=== PATIENT | male | born 1945 | race Caucasian/White ===

== ENCOUNTER 2017-02-09 12:02 | Emergency (ER) | payer MEDICARE, OTHER ==
[2017-02-09 12:38] VITALS: RESP 20
[2017-02-09] MEDS ORDERED: KETOROLAC 60 MG/2 ML VIAL IM STA (12:50)
[2017-02-09] MEDS ORDERED: ORPHENADRINE 30 MG/ML 2 ML VIAL IM STA (12:50)
[2017-02-09] MEDS ORDERED: HYDROcodone/APAP 10-325MG 1 EACH TAB PO ONE (12:50)
--- NOTE | 2017-02-09 12:56 | ED ---
Back Pain HPI - General Chief Complaint: Back Pain/Injury Stated Complaint: Back Pain Time Seen by Provider: 02/09/17 12:41 Source: patient, RN notes reviewed, old records reviewed Limitations: no limitations - History of Present Illness Initial Comments: This is a 71-year-old male presenting to the emergency department with chief complaint of lower back pain. Patient reports that he recently moved here from [place] and is in the car for 5 days. Patient reports that after moving he was trying to listen heavy boxes and twisted and now has some lower back pain. Patient states that he has no numbness or tingling down the legs. Denies any saddle anesthesias or loss of bowel or bladder control. Patient reports that the pain is in the lower lumbar spine and will occasionally shoots up and down the leg and up the back. Patient reports that he be comfortable sitting in one position within with certain movements it's worse. Patient states that he is relatively healthy. Patient reports that he recently had a rhizotomy for relieving some chronic back pain and muscle spasms. Patient presented or meningismus much pain before. - Related Data Previous Rx's Medication Instructions Recorded Cyclobenzaprine [Flexeril] 10 mg PO TID #15 tab 02/09/17 HYDROcodone/APAP 10-325MG [Argillite 1 tab PO Q6H PRN #15 tab 02/09/17 10-325] Allergies Allergy/AdvReac Type Severity Reaction Status Date / Time No Known Allergies Allergy Verified 02/09/17 12:38 Review of Systems ROS Statement: Those systems with pertinent positive or pertinent negative responses have been documented in the HPI. ROS Other: All systems not noted in ROS Statement are negative. Past Medical History Past Medical History: Cancer, Pneumonia Additional Past Medical History / Comment(s): back , rt eye blindness History of Any Multi-Drug Resistant Organisms: MRSA Date of last positivie culture/infection: 2008 MDRO Source:: rt shoulder/lung Past Surgical History: Orthopedic Surgery, Prostate Surgery Additional Past Surgical History / Comment(s): knee replacement,rt shoulder,eye surgery Past Psychological History: No Psychological Hx Reported Smoking Status: Never smoker Past Alcohol Use History: None Reported Past Drug Use History: None Reported General Exam - General Exam Comments Initial Comments: Pleasant 71-year-old male. No acute distress. Limitations: no limitations General appearance: alert, in no apparent distress Head exam: Present: atraumatic, normocephalic, normal inspection Eye exam: Present: normal appearance, PERRL, EOMI. Absent: scleral icterus, conjunctival injection, periorbital swelling ENT exam: Present: normal exam, mucous membranes moist Neck exam: Present: normal inspection. Absent: tenderness, meningismus, lymphadenopathy Respiratory exam: Present: normal lung sounds bilaterally. Absent: respiratory distress, wheezes, rales, rhonchi, stridor Cardiovascular Exam: Present: regular rate, normal rhythm, normal heart sounds. Absent: systolic murmur, diastolic murmur, rubs, gallop, clicks GI/Abdominal exam: Present: soft, normal bowel sounds. Absent: distended, tenderness, guarding, rebound, rigid Extremities exam: Present: normal inspection, full ROM, normal capillary refill. Absent: tenderness, pedal edema, joint swelling, calf tenderness Back exam: Present: normal inspection, muscle spasm (Lumbar muscle spasm.), paraspinal tenderness (Right-sided lumbar paraspinal tenderness.). Absent: full ROM Neurological exam: Present: alert, oriented X3, CN II-XII intact Psychiatric exam: Present: normal affect, normal mood Skin exam: Present: warm, dry, intact, normal color. Absent: rash Course Vital Signs 02/09/17 12:35 Temperature 97.2 F L Pulse Rate 80 Respiratory 20 Rate Blood Pressure 145/86 O2 Sat by Pulse 96 Oximetry Medical Decision Making - Medical Decision Making 71-year-old male presents emergency room chief complaint of back pain and back spasms. Patient reports that he recently moved and lifted some boxes. Patient reports that it's became progressively worse. Patient reports the pain is worse with movement. Denies any difficulty with urinating or bowel movements. Patient reports that it's very difficult for him to move. Patient received lumbar spine x-ray. Negative for any acute fracture dislocation. Evidence of multilevel degenerative changes. Patient was given IM Toradol and Norflex. Patient is given 1 by mouth Argillite. Patient reports that he is still in a lot of pain. Patient only given 1 mg of Dilaudid and written for muscle relaxers and pain medication. Discussed close follow-up with a primary care physician. Discussed return parameters. Patient is history plan will comply. - Radiology Data Radiology results: report reviewed No acute fracture dislocation seen her lumbar spine. Reversal of normal lumbar lordosis moderate to advanced multilevel degenerative changes noted. Disposition Clinical Impression: Acute lumbar back pain Disposition: HOME SELF-CARE Condition: Good Instructions: Acute Low Back Pain (ED) Additional Instructions: Patient advised to rest, apply heat and ice to the back. Patient advised to take medications as directed. Follow-up with primary care physician as well as establish care. Return to the emergency department if there are any alarming signs or symptoms including loss of bowel or bladder control. Prescriptions: Cyclobenzaprine [Flexeril] 10 mg PO TID #15 tab HYDROcodone/APAP 10-325MG [Argillite 10-325] 1 tab PO Q6H PRN #15 tab PRN Reason: Pain Referrals: Lorena Rogers MD [STAFF PHYSICIAN] - 1-2 days Yandel Zhou MD [STAFF PHYSICIAN] - 1-2 days Lobo Woods MD [STAFF PHYSICIAN] - 1-2 days Time of Disposition: 14:15
--- NOTE | 2017-02-09 13:53 | XR ---
EXAMINATION TYPE: XR lumbar spine 2 or 3V DATE OF EXAM: 02/09/2017 CLINICAL HISTORY: Lifting injury today with low back pain TECHNIQUE: Frontal and lateral images of the lumbar spine are obtained. COMPARISON: None FINDINGS: There are 6 lumbar type vertebral bodies identified. The lumbar spine shows loss of snow l lumbar lordosis without evidence of acute fracture or dislocation. Vertebral body heights are withi n normal limits. There is moderate to severe multilevel disc space narrowing with multilevel vacuum d isc phenomenon and moderate multilevel anterior and lateral spurring. The overlying soft tissue appe ars unremarkable. IMPRESSION: No acute fracture or dislocation is seen in the lumbar spine. Reversal of normal lumbar lordosis with moderate to advanced multilevel degenerative changes noted.
[2017-02-09] MEDS ORDERED: HYDROmorphone 1 MG/ML 1 ML SYRINGE IM STA (14:19)
[2017-02-09 14:33] VITALS: BP 140/92; PULSE 73; TEMP 98.5
== END 2017-02-09 14:33 | disposition home or self-care (01) ==
LOC: EC 12:02
DX: M62.830 Muscle spasm of back (principal); M47.816 Spondylosis without myelopathy or radiculopathy, lumbar region; Z86.14 Personal history of Methicillin resistant Staphylococcus aureus infection; Z85.9 Personal history of malignant neoplasm, unspecified; Z79.899 Other long term (current) drug therapy; X50.0XXA Overexertion from strenuous movement or load, initial encounter; X50.1XXA Overexertion from prolonged static or awkward postures, initial encounter
CPT/HCPCS: 72100; 99284; 96372 ×3; J2360; J1885; J1170

== ENCOUNTER → 2017-07-19 | Outpatient (CLI) | payer MEDICARE, OTHER | END | disposition home or self-care (01) | LOC: LABWHC1 09:18 | PROVIDERS: ATTEND Urology | DX: C61 Malignant neoplasm of prostate (principal) | CPT/HCPCS: 36415; 84153 ==

== ENCOUNTER → 2017-11-14 | Outpatient (CLI) | payer MEDICARE, OTHER ==
[2017-11-14 12:39] LABS: Anion Gap 11 mmol/L; Blood Urea Nitrogen 19 mg/dL (9-20); Calcium 10.1 mg/dL (8.4-10.2); Carbon Dioxide 31 mmol/L (22-30); Chloride 101 mmol/L (98-107); Glucose 92 mg/dL (74-99); Potassium 4.8 mmol/L (3.5-5.1); Sodium 143 mmol/L (137-145)
[2017-11-14 13:11] LABS: Prostate Specific Antigen 0.71 ng/mL (0.00-4.00)
== END | disposition home or self-care (01) ==
LOC: LABWHC1 11:31
PROVIDERS: ATTEND Radiology Radiation Oncology
DX: C61 Malignant neoplasm of prostate (principal)
CPT/HCPCS: 36415; 80048; 84153

== ENCOUNTER → 2017-11-21 | Outpatient (CLI) | payer MEDICARE, OTHER ==
--- NOTE | 2017-11-21 11:51 | CT ---
EXAMINATION TYPE: CT pelvis w con DATE OF EXAM: 11/21/2017 COMPARISON: NONE HISTORY: 72-year-old male history of prostate cancer with prostatectomy. Increasing PSA levels TECHNIQUE: Contiguous axial scanning of the pelvis following administration of 100 ml Omnipaque 300 I V contrast. Delayed images through the bladder and coronal/sagittal reconstructions performed. CT DLP: 975.2 mGycm Automated exposure control for dose reduction was used. FINDINGS: The visualized kidneys, gallbladder, pancreas, and spleen show no gross abnormality. These organs are only partially imaged on this exam. No dilated small bowel, free fluid, or free air. No mesenteric or retroperitoneal lymphadenopathy in the lower abdomen. Normal appendix. Bladder incompletely distended. The patient is status post prostatectomy. No abnormal enhancement see n in the prostatectomy bed. No pelvic lymphadenopathy identified. Partially visualized small right-si ded hydrocele. Bones: Mild degenerative changes at the hips. A 9 mm sclerotic focus left iliac bone, axial image 44 suspected to represent a bone island. Same with a smaller sclerotic focus left iliac bone at the SI j oint, axial image 41. Degenerative changes throughout the lumbar spine. IMPRESSION: 1. STATUS POST PROSTATECTOMY. NO SUSPICIOUS ENHANCING MASS IDENTIFIED IN THE PROSTATECTOMY BED. 2. NO LOWER ABDOMINAL OR PELVIC LYMPHADENOPATHY SEEN. 3. A COUPLE SMALL SCLEROTIC FOCI IN THE LEFT ILIAC BONE SUSPECTED TO REPRESENT BONE ISLANDS. IF AVAIL ABLE, COMPARISON CAN BE MADE TO PATIENT'S PRIOR EXAMS TO DETERMINE STABILITY. ALSO, CORRELATE TO T HE DEGREE OF PSA ELEVATION.
--- NOTE | 2017-11-21 14:02 | NM ---
EXAMINATION TYPE: NM bone scan whole body DATE OF EXAM: 11/21/2017 COMPARISON: CT dated 11/21/2017 HISTORY: Prostate carcinoma Delayed whole-body scanning was performed following the injection of 23.4 mCi Tc 99m MDP. Images acq uired 3 hours post injection. FINDINGS: A small area of focal radiotracer uptake is seen within the proximal right tibial metadiaphysis and i ts medial aspect. Other symmetric uptake of the knees represent degenerative change with photopenic d efect on the left compatible with prior surgical intervention. No focal uptake is seen within the lef t iliac bone to correspond to the 9 mm nonspecific sclerotic focus, favored to represent a benign bon e island. Smaller pelvic sclerotic foci utilized on the prior CT are punctate and is likely not demon strate uptake due to small size. However these could also relate to bone islands. Symmetric uptake within the sacroiliac joints, shoulders, chromic clavicular joints, sternoclavicular joints, elbows, wrists, and ankles most commonly relates to arthropathy. IMPRESSION: 1. Small focal rounded area of uptake within the medial aspect of the proximal right tibial metadiaph ysis. Metastasis to this region is unlikely but possible and therefore correlation with dedicated rad iographs of the right tibia and fibula are recommended. 2. No other scintigraphic evidence of metastatic disease. The previously seen 9 mm left pelvic sclero tic focus on the CT dated 11/21/2017 does not demonstrate focal uptake. 3. Symmetric multifocal joint uptake in the appendicular skeleton most compatible with degenerative c hange.
== END | disposition home or self-care (01) ==
LOC: RADNMMAIN 09:14
PROVIDERS: ATTEND Radiology Radiation Oncology
DX: C61 Malignant neoplasm of prostate (principal); R93.7 Abnormal findings on diagnostic imaging of other parts of musculoskeletal system; Z90.79 Acquired absence of other genital organ(s)
CPT/HCPCS: 72193; 78306; A9503; Q9967

== ENCOUNTER → 2018-02-15 | Outpatient (CLI) | payer MEDICARE, OTHER ==
[2018-02-15 12:14] LABS: Blood Urea Nitrogen 19 mg/dL (9-20)
[2018-02-15 12:47] LABS: Prostate Specific Antigen 0.51 ng/mL (0.00-4.00)
== END | disposition home or self-care (01) ==
LOC: LABWHC1 08:56
PROVIDERS: ATTEND Physical Medicine & Rehabilitation
DX: C61 Malignant neoplasm of prostate (principal); G89.4 Chronic pain syndrome; M51.26 Other intervertebral disc displacement, lumbar region; M51.36 Other intervertebral disc degeneration, lumbar region; M47.816 Spondylosis without myelopathy or radiculopathy, lumbar region; M79.1 Myalgia; M25.512 Pain in left shoulder; M25.511 Pain in right shoulder; M25.551 Pain in right hip; M25.552 Pain in left hip
CPT/HCPCS: 36415; 82565; 84153; 84520

== ENCOUNTER → 2018-08-16 | Outpatient (CLI) | payer MEDICARE, OTHER | LOC: LABWHC1 12:14 | PROVIDERS: ATTEND Nurse Practitioner Adult Health | DX: C61 Malignant neoplasm of prostate (principal); Z92.3 Personal history of irradiation | CPT/HCPCS: 36415; 84153 ==

== ENCOUNTER → 2018-11-16 | Outpatient (CLI) | payer MEDICARE | END | disposition home or self-care (01) | LOC: LABWHC1 06:47 | PROVIDERS: ATTEND Radiology Radiation Oncology | DX: C61 Malignant neoplasm of prostate (principal); Z92.3 Personal history of irradiation | CPT/HCPCS: 36415; 84153 ==

== ENCOUNTER → 2019-03-26 | Outpatient (CLI) | payer MEDICARE | END | disposition home or self-care (01) | LOC: LABWHC1 10:06 | PROVIDERS: ATTEND Radiology Radiation Oncology | DX: C61 Malignant neoplasm of prostate (principal); Z92.3 Personal history of irradiation; R97.21 Rising PSA following treatment for malignant neoplasm of prostate | CPT/HCPCS: 36415; 84153 ==

== ENCOUNTER → 2020-06-16 | Outpatient (CLI) | payer MEDICARE ==
--- NOTE | 2020-06-16 12:08 | XR ---
EXAMINATION TYPE: XR chest 2V DATE OF EXAM: 06/16/2020 COMPARISON: NONE TECHNIQUE: PA and lateral views submitted. HISTORY: Cough FINDINGS: Elevated right hemidiaphragm with basilar consolidation and small effusion. Subsegmental changes at t he left lung base. Arthropathy of the shoulder. Postsurgical change right shoulder. No pneumothorax. Heart size normal. IMPRESSION: 1. Bilateral lower lobe infiltrate with small effusion on the right. Correlate for pneumonia otherwis e consider mild CHF.
== END | disposition home or self-care (01) ==
LOC: RADXRMAIN 11:33
PROVIDERS: ATTEND Nurse Practitioner Adult Health
DX: J90 Pleural effusion, not elsewhere classified (principal); R91.8 Other nonspecific abnormal finding of lung field
CPT/HCPCS: 71046

== ENCOUNTER → 2020-09-08 | Outpatient (CLI) | payer MEDICARE | END | disposition home or self-care (01) | LOC: LABWHC1 12:31 | PROVIDERS: ATTEND Nurse Practitioner Adult Health | DX: R05 Cough (principal); R06.02 Shortness of breath; R50.9 Fever, unspecified | CPT/HCPCS: U0003; C9803 ==

== ENCOUNTER → 2020-10-09 | Outpatient (CLI) | payer MEDICARE | END | disposition home or self-care (01) | LOC: LABWHC1 10:42 | PROVIDERS: ATTEND Radiology Radiation Oncology | DX: C61 Malignant neoplasm of prostate (principal); R97.21 Rising PSA following treatment for malignant neoplasm of prostate; Z92.3 Personal history of irradiation | CPT/HCPCS: 36415; 84153 ==

== ENCOUNTER → 2021-04-27 | Outpatient (CLI) | payer MEDICARE | END | disposition home or self-care (01) | LOC: LABWHC1 11:17 | PROVIDERS: ATTEND Radiology Radiation Oncology | DX: Z08 Encounter for follow-up examination after completed treatment for malignant neoplasm (principal); C61 Malignant neoplasm of prostate; Z85.828 Personal history of other malignant neoplasm of skin; Z85.46 Personal history of malignant neoplasm of prostate; Z92.3 Personal history of irradiation | CPT/HCPCS: 36415; 84153 ==

== ENCOUNTER → 2021-11-04 | Outpatient (CLI) | payer MEDICARE ==
[2021-11-04 18:59] LABS: Basophils # (A) 0.03 X 10*3/uL (0.00-0.10); Basophils % (A) 0.4 %; Eosinophils # (A) 0.41 X 10*3/uL (0.04-0.35); Eosinophils % (A) 5.9 %; HCT 37.9 % (39.6-50.0); HGB 11.5 g/dL (13.0-17.0); Immature Grans, Automated 0.6 %; Lymphocytes # (A) 1.31 X 10*3/uL (0.90-5.00); Lymphocytes % (A) 18.7 %; MCH 26.1 pg (27.0-32.0); MCHC 30.3 g/dL (32.0-37.0); MCV 86.1 fL (80.0-97.0); Mean Platelet Volume 9.8 fL (9.5-12.2); Monocytes # (A) 0.68 X 10*3/uL (0.20-1.00); Monocytes % (A) 9.7 %; NRBC Per 100 WBC 0 /100 WBCS (0.0-0.0); Neutrophils # (A) 4.52 X 10*3/uL (1.80-7.70); Neutrophils % (A) 64.7 %; Platelet Count 400 X 10*3/uL (140-440); RDW 17.3 % (11.5-14.5); WBC 6.99 X 10*3/uL (4.50-10.00)
[2021-11-04 19:32] LABS: ALT 17 U/L (10-49); AST 25 U/L (14-35); African American GFR (CKD) 100.6 (60.0-200.0); Albumin 4.1 g/dL (3.8-4.9); Albumin/Globulin Ratio 1.52 (1.60-3.17); Alkaline Phosphatase 81 U/L (41-126); BUN/Creat Ratio 22.25 Ratio (12.00-20.00); Blood Urea Nitrogen 17.8 mg/dL (9.0-27.0); Carbon Dioxide 24.6 mmol/L (20.0-27.5); Chloride 101 mmol/L (96-109); Chol/HDL Ratio 3.59 Ratio; Globulin 2.7 g/dL (1.6-3.3); Glucose 96 mg/dL (70-110); LDL Cholesterol,Calculated 85.2 mg/dL (0.0-131.0); Non-African American GFR(CKD) 86.8 (60.0-200.0); Potassium 4.7 mmol/L (3.5-5.5); Sodium 137 mmol/L (135-145); Total Protein 6.8 g/dL (6.2-8.2)
== END | disposition home or self-care (01) ==
LOC: LABWHC1 10:39
PROVIDERS: ATTEND Radiology Radiation Oncology
DX: Z08 Encounter for follow-up examination after completed treatment for malignant neoplasm (principal); Z85.828 Personal history of other malignant neoplasm of skin; Z85.46 Personal history of malignant neoplasm of prostate; Z92.3 Personal history of irradiation; C61 Malignant neoplasm of prostate; I50.9 Heart failure, unspecified; F33.0 Major depressive disorder, recurrent, mild; J44.9 Chronic obstructive pulmonary disease, unspecified; G63 Polyneuropathy in diseases classified elsewhere
CPT/HCPCS: 36415; 80053; 80061; 82306; 82607; 84153; 84439; 84443; 85025

== ENCOUNTER → 2022-01-27 | Outpatient (CLI) | payer MEDICARE ==
[2022-01-27 12:46] LABS: Anisocytosis Slight; Basophils % (A) 1 %; Eosinophils # (A) 0.4 k/uL (0-0.7); Eosinophils % (A) 7 %; HGB 11.2 gm/dL (13.0-17.5); Hypochromasia Marked; Lymphocytes # (A) 1.4 k/uL (1.0-4.8); Lymphocytes % (A) 24 %; MCH 25.8 pg (25.0-35.0); MCHC 30.3 g/dL (31.0-37.0); MCV 85.1 fL (80.0-100.0); Mean Platelet Volume 7.1; Monocytes # (A) 0.5 k/uL (0-1.0); Monocytes % (A) 8 %; Neutrophils # (A) 3.2 k/uL (1.3-7.7); Neutrophils % (A) 57 %; Platelet Count 426 k/uL (150-450); RBC 4.35 m/uL (4.30-5.90); Reticulocyte % 1.7 % (0.5-2.0); WBC 5.6 k/uL (3.8-10.6)
[2022-01-27 18:43] LABS: Protein, Total 6.3 g/dL (6.2-8.2)
[2022-01-27 19:12] LABS: % Iron Saturation 4.33 (15.00-50.00); African American GFR (CKD) 84.4 (60.0-200.0); Anion Gap 10.1 mmol/L (10.00-18.00); BUN/Creat Ratio 22.4 Ratio (12.00-20.00); Blood Urea Nitrogen 22.4 mg/dL (9.0-27.0); Calcium 9.5 mg/dL (8.7-10.3); Carbon Dioxide 26.9 mmol/L (20.0-27.5); Ferritin 16.3 ng/mL (22.0-322.0); Non-African American GFR(CKD) 72.8 (60.0-200.0); Prostate Specific Antigen 1.5 ng/mL (0.00-6.50)
== END | disposition home or self-care (01) ==
LOC: LABWHC1 10:37
PROVIDERS: ATTEND Radiology Radiation Oncology
DX: C61 Malignant neoplasm of prostate (principal); Z92.3 Personal history of irradiation; Z85.46 Personal history of malignant neoplasm of prostate; Z85.828 Personal history of other malignant neoplasm of skin; Z85.820 Personal history of malignant melanoma of skin; Z08 Encounter for follow-up examination after completed treatment for malignant neoplasm
CPT/HCPCS: 36415; 80048; 82607; 82728; 82746; 83540; 83550; 84153; 84165; 85025; 85045

== ENCOUNTER → 2022-01-27 | Outpatient (CLI) | payer MEDICARE | END | disposition home or self-care (01) | LOC: LABWHC1 10:51 | PROVIDERS: ATTEND Internal Medicine | DX: Z53.9 Procedure and treatment not carried out, unspecified reason (principal) ==

== ENCOUNTER → 2022-02-04 | Outpatient (CLI) | payer MEDICARE ==
--- NOTE | 2022-02-05 08:35 | CA ---
Transthoracic Echo Report Name: Ashkan Eden Age: 76 Gender: M : 1945 Exam Date: 02/04/2022 13:56 Exam Location: [facility] Ht (in): 71 Wt (lb): 224 Ordering Physician: Joseph Griggs MD Attending/Referring Phys: Joseph Griggs MD Front Line Leader Geno Najera RDCS Procedure CPT: Indications: chf Cardiac Hx: Technical Quality: Good Contrast 1: Total Dose (mL): Contrast 2: Total Dose (mL): MEASUREMENTS (Male / Female) Normal Values 2D ECHO LV Diastolic Diameter PLAX 4.5 cm 4.2 - 5.9 / 3.9 - 5.3 cm LV Systolic Diameter PLAX 2.2 cm IVS Diastolic Thickness 1.2 cm 0.6 - 1.0 / 0.6 - 0.9 cm LVPW Diastolic Thickness 1.2 cm 0.6 - 1.0 / 0.6 - 0.9 cm LV Relative Wall Thickness 0.5 RV Internal Dim ED PLAX 3.3 cm LA Volume 48.3 cm??? 18 - 58 / 22 - 52 cm??? M-MODE Aortic Root Diameter MM 3.7 cm LA Systolic Diameter MM 3.4 cm LA Ao Ratio MM 0.9 MV E Point Septal Separation 0.6 cm AV Cusp Separation MM 2.4 cm DOPPLER AV Peak Velocity 99.1 cm/s AV Peak Gradient 3.9 mmHg MV Area PHT 4.2 cm??? MR Peak Velocity 228.5 cm/s MR Peak Gradient 20.9 mmHg Mitral E Point Velocity 53.7 cm/s Mitral A Point Velocity 75.5 cm/s Mitral E to A Ratio 0.7 MV Deceleration Time 181.6 ms MV E' Velocity 6.4 cm/s Mitral E to MV E' Ratio 8.4 TR Peak Velocity 117.5 cm/s TR Peak Gradient 5.5 mmHg Right Ventricular Systolic Press 10.4 mmHg FINDINGS Left Ventricle Mildly increased septal wall thickness. Left ventricular ejection fraction is estimated at 55-60 %. Left ventricular cavity size normal. Right Ventricle The right ventricle is normal in size and function. Right Atrium The right atrium is normal in size. Left Atrium The left atrium is normal in size. Mitral Valve Structurally normal mitral valve without significant stenosis or prolapse. There is mild mitral regurgitation. Aortic Valve Structurally normal aortic valve without significant sclerosis or stenosis. There is no aortic regurgitation. Tricuspid Valve Structurally normal tricuspid valve without significant stenosis. Pulmonary artery systolic pressure is normal. Mild tricuspid regurgitation. Pulmonic Valve Structurally normal pulmonic valve without significant stenosis. There is no pulmonic regurgitation. Pericardium Normal pericardium without effusion. Aorta Normal aortic root dimension. CONCLUSIONS Normal left ventricular dimension and systolic function See above for further details Previewed by: Dr. Devan Owen MD (Electronically Signed) Final Date: 05 Feb 2022 08:34
== END | disposition home or self-care (01) ==
LOC: RADECHMAIN 18:45
PROVIDERS: ATTEND Internal Medicine
DX: I08.1 Rheumatic disorders of both mitral and tricuspid valves (principal)
CPT/HCPCS: 93306

== ENCOUNTER → 2022-04-09 | Outpatient (CLI) | payer MEDICARE ==
--- NOTE | 2022-04-12 06:41 | PE ---
EXAMINATION TYPE: PET CT fusion skull to thigh DATE OF EXAM: 04/09/2022 COMPARISON: CT abdomen and pelvis September 20, 2021 HISTORY: History of prostate cancer diagnosed 2010 treated with prostatectomy 2010 with radiation t reatment through 2018. PMSA doubled over last 3 months. TECHNIQUE: Following the intravenous administration of 6.01 mCi Ga-PSMA-11 PET, whole body images ar e performed from the skull base to the midthigh. Images are reviewed on the computer in the coronal, axial, and sagittal planes. Reconstructed rotating images are created on independent workstation an d reviewed on the computer. A localization and attenuation correction CT is performed in conjunctio n with the PET scan. SCAN: Subsequent Scan FINDINGS: SKULL BASE AND NECK: Normal symmetric uptake at level of parotid and submandibular glands. No suspic ious hypermetabolic uptake. CHEST, MEDIASTINUM, AND HILAR REGION: Low lung volumes and elevated right hemidiaphragm. No suspiciou s hypermetabolic uptake. ABDOMEN AND PELVIS: Normal excretion. Prostate gland surgically absent. There are 2 subcentimeter but prominent left pelvic lymph nodes measuring near 6 mm axial image 214 and more posteriorly 218, with abnormal hypermetabolic uptake max SUV is 10. OSSEOUS STRUCTURES: No definitive abnormal hypermetabolic lymph nodes OTHER CT: Metallic artifact from right shoulder reverse arthroplasty is present. Moderate axial joint space loss in both hips. Straightening of spine with slight scoliotic curvature. IMPRESSION: Suspicious subcentimeter left pelvic lymph nodes worrisome for local neoplastic recurrenc e.
== END | disposition home or self-care (01) ==
LOC: RADXRMAIN 10:13
PROVIDERS: ATTEND Radiology Radiation Oncology
DX: C61 Malignant neoplasm of prostate (principal)
CPT/HCPCS: 78815; A9596

== ENCOUNTER → 2022-08-18 | Outpatient (CLI) | payer MEDICARE ==
[2022-08-18 15:43] LABS: % Iron Saturation 9.87 (15.00-50.00); ALT 25 U/L (10-49); AST 30 U/L (14-35); African American GFR (CKD) 91.2 (60.0-200.0); Albumin 4.3 g/dL (3.8-4.9); Albumin/Globulin Ratio 1.63 (1.60-3.17); Alkaline Phosphatase 73 U/L (41-126); BUN/Creat Ratio 21.67 Ratio (12.00-20.00); Blood Urea Nitrogen 20.2 mg/dL (9.0-27.0); Calcium 9.8 mg/dL (8.7-10.3); Carbon Dioxide 28.8 mmol/L (20.0-27.5); Chloride 97 mmol/L (96-109); Chol/HDL Ratio 3.31 Ratio; Globulin 2.7 g/dL (1.6-3.3); Glucose 108 mg/dL (70-110); Iron 48 ug/dL (65-175); LDL Cholesterol,Calculated 102.2 mg/dL (0.0-131.0); Non-African American GFR(CKD) 78.7 (60.0-200.0); Potassium 3.6 mmol/L (3.5-5.5); Sodium 138 mmol/L (135-145); Total Iron Binding Capacity 487 ug/dL (228-460)
[2022-08-18 16:40] LABS: Basophils # (A) 0.05 X 10*3/uL (0.00-0.10); Basophils % (A) 0.7 %; Eosinophils # (A) 0.31 X 10*3/uL (0.04-0.35); Eosinophils % (A) 4.4 %; HCT 41.1 % (39.6-50.0); HGB 12.4 g/dL (13.0-17.0); Immature Grans, Automated 0.4 %; Lymphocytes # (A) 1.54 X 10*3/uL (0.90-5.00); Lymphocytes % (A) 21.8 %; MCHC 30.2 g/dL (32.0-37.0); MCV 82.9 fL (80.0-97.0); Mean Platelet Volume 9.8 fL (9.5-12.2); Monocytes # (A) 0.78 X 10*3/uL (0.20-1.00); NRBC Per 100 WBC 0 /100 WBCS (0.0-0.0); Neutrophils # (A) 4.37 X 10*3/uL (1.80-7.70); Neutrophils % (A) 61.7 %; Platelet Count 404 X 10*3/uL (140-440); RBC 4.96 X 10*6/uL (4.40-5.60); RDW 18.3 % (11.5-14.5); WBC 7.08 X 10*3/uL (4.50-10.00)
== END | disposition home or self-care (01) ==
LOC: LABWHC1 09:35
PROVIDERS: ATTEND Radiology Radiation Oncology
DX: Z08 Encounter for follow-up examination after completed treatment for malignant neoplasm (principal); D50.9 Iron deficiency anemia, unspecified; Z85.820 Personal history of malignant melanoma of skin; Z85.828 Personal history of other malignant neoplasm of skin; Z85.46 Personal history of malignant neoplasm of prostate; Z92.3 Personal history of irradiation
CPT/HCPCS: 36415; 80053; 80061; 82607; 82746; 83540; 83550; 84153; 84443; 85025

== ENCOUNTER → 2022-11-29 | Outpatient (CLI) | payer MEDICARE ==
--- NOTE | 2022-11-29 11:29 | FL ---
EXAMINATION TYPE: FL sniff test without CXR DATE OF EXAM: 11/29/2022 COMPARISON: Most recent chest x-ray November 17, 2022 and older x-rays through 2019 HISTORY: Paralyzed diaphragm per order. Shortness of breath. Abnormal x-ray. History of prostate canc er. TECHNIQUE: Fluoroscopy-assisted sniff test. FINDINGS: Fluoroscopic guidance was provided during sniff test procedure performed by myself. A tot al of 22 seconds of fluoroscopic time was utilized during the procedure and 16 spot images was acquir ed. Total DAP 1248.63. Dynamic imaging shows satisfactory motion of the left hemidiaphragm on inspiration and expiration. Ri ght hemidiaphragm is abnormally elevated and does not move during inspiration and expiration. 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
[2022-11-29 11:45] LABS: African American GFR (CKD) >90 (>60 ml/min/1.73 sqM); Blood Urea Nitrogen 29 mg/dL (9-20); Non-African American GFR(CKD) 83 (>60 ml/min/1.73 sqM)
--- NOTE | 2022-11-29 13:56 | CT ---
EXAMINATION TYPE: CT chest w con DATE OF EXAM: 11/29/2022 COMPARISON: PET/CT 04/09/2022. Fluoroscopic sniff test performed today as well. HISTORY: 77-year-old male R91.8, shortness of breath, dyspnea TECHNIQUE: Contiguous axial scanning of the chest after the administration of 100 mL of Isovue 370. Coronal/sagittal reconstructions performed. CT DLP: 571.4mGycm. Automatic exposure control utilized for a dose reduction. FINDINGS: Heart normal size without pericardial effusion. Ectatic ascending aorta 3.9 cm. Conventional arch vessel branching anatomy. Ectatic upper descending thoracic aorta 3.1 cm. Large caliber to the main right and left pulmonary arteries measuring up to 3.0 cm suggesting underly ing pulmonary hypertension. Small mediastinal lymph nodes. No thoracic lymphadenopathy by CT size criteria. Marked asymmetric elevation right hemidiaphragm with secondary complete opacification of volume loss of the right middle lobe, likely collapse. Additional prominent segmental atelectasis of the right lo wer lobe. Strandy atelectasis left base. Otherwise, no consolidation or pleural effusion. Visualized upper abdomen shows partial visualization of a right renal cyst measuring up to 2.7 cm. Bones: Right shoulder arthroplasty partially visualized. There is a dextroconvex scoliosis upper thor acic spine. Moderate degenerative disc disease visualized upper lumbar spine. Sclerotic focus within the T8 vertebral body and also T4 posterior elements. Refer to the sagittal im age 21. T8 focus not clearly seen on the patient's 04/09/2022 PET/CT. IMPRESSION: 1. Ongoing asymmetric elevation right hemidiaphragm compatible with the hemidiaphragmatic paralysis n oted on the sniff test performed today. There is significant secondary right middle lobe collapse and segmental basilar collapse of the right lower lobe. 2. Underlying pulmonary artery hypertension. 3. A couple sclerotic foci within the T4 and T8 vertebra. The T8 sclerosis not clearly identified on the 04/09/2022 PET/CT. Correlate with PSA values to exclude osteoblastic metastasis.
== END | disposition home or self-care (01) ==
LOC: RADUSWWP 10:33
PROVIDERS: ATTEND Internal Medicine Critical Care Medicine
DX: J98.6 Disorders of diaphragm (principal); R91.8 Other nonspecific abnormal finding of lung field
CPT/HCPCS: 82565; 84520; 76000; 71260; 36415; Q9967

== ENCOUNTER → 2022-12-02 | Outpatient (CLI) | payer MEDICARE | END | disposition home or self-care (01) | LOC: LABWHC1 07:28 | PROVIDERS: ATTEND Urology | DX: C61 Malignant neoplasm of prostate (principal) | CPT/HCPCS: 36415; 84153 ==

== ENCOUNTER → 2023-02-23 | Outpatient (CLI) | payer MEDICARE | END | disposition home or self-care (01) | LOC: LABWHC1 08:01 | PROVIDERS: ATTEND Radiology Radiation Oncology | DX: Z08 Encounter for follow-up examination after completed treatment for malignant neoplasm (principal); C61 Malignant neoplasm of prostate; Z85.820 Personal history of malignant melanoma of skin; Z85.828 Personal history of other malignant neoplasm of skin; Z85.46 Personal history of malignant neoplasm of prostate; Z92.3 Personal history of irradiation | CPT/HCPCS: 36415; 84153 ==

== ENCOUNTER → 2023-11-28 | Outpatient (CLI) | payer MEDICARE ==
[2023-11-28 11:04] LABS: Ionized Calcium 5.4 mg/dL (4.5-5.3)
[2023-11-28 11:05] LABS: Basophils # (A) 0.1 k/uL (0-0.2); Basophils % (A) 1 %; Eosinophils # (A) 0.3 k/uL (0-0.7); Eosinophils % (A) 5 %; HCT 45.6 % (39.0-53.0); HGB 14.5 gm/dL (13.0-17.5); Lymphocytes # (A) 1.4 k/uL (1.0-4.8); Lymphocytes % (A) 20 %; MCH 29.7 pg (25.0-35.0); MCHC 31.8 g/dL (31.0-37.0); MCV 93.4 fL (80.0-100.0); Mean Platelet Volume 7.4; Monocytes # (A) 0.4 k/uL (0-1.0); Monocytes % (A) 6 %; Neutrophils # (A) 4.6 k/uL (1.3-7.7); Neutrophils % (A) 67 %; Platelet Count 317 k/uL (150-450); RBC 4.88 m/uL (4.30-5.90); WBC 6.8 k/uL (3.8-10.6)
[2023-11-28 13:26] LABS: RBC Morphology Normal
[2023-11-28 16:44] LABS: Albumin 4.5 g/dL (3.8-4.9)
[2023-11-28 16:59] LABS: BUN/Creat Ratio 21.67 Ratio (12.00-20.00); Blood Urea Nitrogen 19.5 mg/dL (9.0-27.0); Calcium 10.6 mg/dL (8.7-10.3); Carbon Dioxide 28.8 mmol/L (21.6-31.8); Chloride 101 mmol/L (96-109); Glucose 102 mg/dL (70-110); Potassium 4.7 mmol/L (3.5-5.5); Sodium 140 mmol/L (135-145)
[2023-11-28 17:04] LABS: Prostate Specific Antigen <0.01 ng/mL (0.000-6.500)
[2023-11-29 18:20] LABS: Gamma Globulin 0.85 g/dL (0.70-1.50)
== END | disposition home or self-care (01) ==
LOC: LABWHC1 10:04
PROVIDERS: ATTEND Urology
DX: C61 Malignant neoplasm of prostate (principal); E83.52 Hypercalcemia
CPT/HCPCS: 36415; 80048; 82306; 82330; 82652; 83970; 84153; 84165; 85025

== ENCOUNTER 2024-04-30 14:00 | Inpatient (IN) | payer MEDICARE ==
[~2024-04-30 14:00] MED LIST: ACETAMINOPHEN TAB 500 MG TAB ONE; MORPHINE SULFATE 4 MG/ML SYRINGE ONE
[2024-04-30] MEDS ORDERED: HYDROcodone/APAP 10-325MG 1 EACH TAB ONE (18:30)
[2024-04-30] MEDS ORDERED: PIPERACILLIN-TAZOBACTAM 3.375 GM VIAL ONE ×2 (18:41→23:02)
[2024-04-30] MEDS ORDERED: SODIUM CHLORIDE 0.9% 1,000 ML BAG ONE (18:50)
[2024-04-30] MEDS ORDERED: VANCOMYCIN 500 MG VIAL ONE (23:59)
[2024-04-30] MEDS ORDERED: SODIUM CHLORIDE 0.9% 500 ML BAG ONE (23:59)
[2024-04-30] MEDS ORDERED: VANCOMYCIN 1,000 MG VIAL ONE (23:59)
[2024-04-30] MEDS ORDERED: SODIUM CHLORIDE 0.9% 100 ML BAG IV ONE (23:59)
[2024-05-01] MEDS ORDERED: HYDROcodone/APAP 10-325MG 1 EACH TAB ONE ×5 (01:06→23:13)
[2024-05-01] MEDS ORDERED: ACETAMINOPHEN TAB 325 MG TAB ONE (01:37)
[2024-05-01] MEDS ORDERED: IPRATROPIUM-ALBUTEROL 3 ML NEB ONE (04:59)
[2024-05-01] MEDS ORDERED: FORMOTEROL FUMARATE 20 MCG/2 ML NEBU INHALATION ONE ×2 (04:59→19:40)
[2024-05-01] MEDS ORDERED: BUDESONIDE 1 MG/2 ML NEBU INHALATION ONE (04:59)
[2024-05-01] MEDS ORDERED: methylPREDNISolone SOD SUCCI 125 MG/2 ML VIAL ONE ×4 (05:47→23:13)
[2024-05-01] MEDS ORDERED: FUROSEMIDE 20 MG TAB ONE (08:59)
[2024-05-01] MEDS ORDERED: ASPIRIN 81 MG ONE (08:59)
[2024-05-01] MEDS ORDERED: PANTOPRAZOLE 40 MG TABLET PO ONE (08:59)
[2024-05-01] MEDS ORDERED: HEPARIN SODIUM,PORCINE 5,000 UNIT/ML 1 ML VIAL ONE (08:59)
[2024-05-01] MEDS ORDERED: PRAMIPEXOLE 0.25 MG TAB ONE ×2 (08:59→23:16)
[2024-05-01] MEDS ORDERED: DULoxetine HCL 60 MG CAPSULE.DR PO ONE (08:59)
[2024-05-01] MEDS ORDERED: METOPROLOL TARTRATE 25 MG TAB ONE ×2 (12:36→20:20)
[2024-05-01] MEDS ORDERED: GABAPENTIN 300 MG CAP ONE (23:13)
[2024-05-01] MEDS ORDERED: GABAPENTIN 400 MG CAP ONE (23:19)
[2024-05-01] MEDS ORDERED: SODIUM CHLORIDE 0.9% 50 ML BAG ONE (23:59)
[2024-05-01] MEDS ORDERED: VANCOMYCIN 1,000 MG VIAL ONE ×2 (23:59)
[2024-05-01] MEDS ORDERED: CEFEPIME 1 GM VIAL ONE (23:59)
[2024-05-01] MEDS ORDERED: SODIUM CHLORIDE 0.9% 500 ML BAG ONE (23:59)
[2024-05-02] MEDS ORDERED: methylPREDNISolone SOD SUCCI 125 MG/2 ML VIAL ONE ×3 (05:41→17:26)
[2024-05-02] MEDS ORDERED: IPRATROPIUM-ALBUTEROL 3 ML NEB ONE (05:44)
[2024-05-02] MEDS ORDERED: FORMOTEROL FUMARATE 20 MCG/2 ML NEBU INHALATION ONE (05:45)
[2024-05-02] MEDS ORDERED: BUDESONIDE 1 MG/2 ML NEBU INHALATION ONE (05:45)
[2024-05-02] MEDS ORDERED: IPRATROPIUM 0.5 MG/2.5 ML NEBU INHALATION ONE (05:46)
[2024-05-02] MEDS ORDERED: PANTOPRAZOLE 40 MG TABLET PO ONE (08:36)
[2024-05-02] MEDS ORDERED: DULoxetine HCL 60 MG CAPSULE.DR PO ONE (08:36)
[2024-05-02] MEDS ORDERED: FUROSEMIDE 20 MG TAB ONE (08:36)
[2024-05-02] MEDS ORDERED: METOPROLOL TARTRATE 25 MG TAB ONE ×2 (08:36→20:22)
[2024-05-02] MEDS ORDERED: HYDROcodone/APAP 10-325MG 1 EACH TAB ONE ×4 (08:36→20:30)
[2024-05-02] MEDS ORDERED: ASPIRIN 81 MG ONE (08:36)
[2024-05-02] MEDS ORDERED: HEPARIN SODIUM,PORCINE 5,000 UNIT/ML 1 ML VIAL ONE ×2 (13:19→20:23)
[2024-05-02] MEDS ORDERED: PRAMIPEXOLE 0.25 MG TAB ONE (20:23)
[2024-05-02] MEDS ORDERED: GABAPENTIN 400 MG CAP ONE (20:30)
[2024-05-02] MEDS ORDERED: CEFEPIME 1 GM VIAL ONE (23:59)
[2024-05-02] MEDS ORDERED: SODIUM CHLORIDE 0.9% 50 ML BAG ONE (23:59)
[2024-05-02] MEDS ORDERED: SODIUM CHLORIDE 0.9% 500 ML BAG ONE (23:59)
[2024-05-02] MEDS ORDERED: VANCOMYCIN 1,000 MG VIAL ONE (23:59)
[2024-05-03] MEDS ORDERED: methylPREDNISolone SOD SUCCI 125 MG/2 ML VIAL ONE ×3 (05:04→17:58)
[2024-05-03] MEDS ORDERED: HEPARIN SODIUM,PORCINE 5,000 UNIT/ML 1 ML VIAL ONE ×3 (05:04→20:46)
[2024-05-03] MEDS ORDERED: BUDESONIDE 1 MG/2 ML NEBU INHALATION ONE (05:06)
[2024-05-03] MEDS ORDERED: FORMOTEROL FUMARATE 20 MCG/2 ML NEBU INHALATION ONE (05:06)
[2024-05-03] MEDS ORDERED: IPRATROPIUM-ALBUTEROL 3 ML NEB ONE (05:08)
[2024-05-03] MEDS ORDERED: ASPIRIN 81 MG ONE (09:04)
[2024-05-03] MEDS ORDERED: PANTOPRAZOLE 40 MG TABLET PO ONE (09:04)
[2024-05-03] MEDS ORDERED: HYDROcodone/APAP 10-325MG 1 EACH TAB ONE ×4 (09:04→20:45)
[2024-05-03] MEDS ORDERED: METOPROLOL TARTRATE 25 MG TAB ONE ×3 (09:04→20:49)
[2024-05-03] MEDS ORDERED: DULoxetine HCL 60 MG CAPSULE.DR PO ONE (09:04)
[2024-05-03] MEDS ORDERED: FUROSEMIDE 20 MG TAB ONE (09:04)
[2024-05-03] MEDS ORDERED: SODIUM CHLORIDE 0.9% 50 ML BAG ONE (13:00)
[2024-05-03] MEDS ORDERED: cefTRIAXone 1 GM VIAL ONE (13:13)
[2024-05-03] MEDS ORDERED: AZITHROMYCIN 500 MG TAB ONE (13:13)
[2024-05-03] MEDS ORDERED: GABAPENTIN 400 MG CAP ONE (20:45)
[2024-05-04] MEDS ORDERED: HYDROcodone/APAP 10-325MG 1 EACH TAB ONE ×4 (08:54→20:55)
[2024-05-04] MEDS ORDERED: ASPIRIN 81 MG ONE (08:54)
[2024-05-04] MEDS ORDERED: PANTOPRAZOLE 40 MG TABLET PO ONE (08:54)
[2024-05-04] MEDS ORDERED: DULoxetine HCL 60 MG CAPSULE.DR PO ONE (08:55)
[2024-05-04] MEDS ORDERED: cefTRIAXone 1 GM VIAL ONE (08:55)
[2024-05-04] MEDS ORDERED: FUROSEMIDE 20 MG TAB ONE (08:55)
[2024-05-04] MEDS ORDERED: METOPROLOL TARTRATE 25 MG TAB ONE ×3 (08:55→20:55)
[2024-05-04] MEDS ORDERED: SODIUM CHLORIDE 0.9% 50 ML BAG ONE (09:00)
[2024-05-04] MEDS ORDERED: HEPARIN SODIUM,PORCINE 5,000 UNIT/ML 1 ML VIAL ONE ×2 (13:47→20:55)
[2024-05-04] MEDS ORDERED: AZITHROMYCIN 500 MG TAB ONE (18:22)
[2024-05-04] MEDS ORDERED: FORMOTEROL FUMARATE 20 MCG/2 ML NEBU INHALATION ONE (19:56)
[2024-05-04] MEDS ORDERED: BUDESONIDE 1 MG/2 ML NEBU INHALATION ONE (19:56)
[2024-05-04] MEDS ORDERED: IPRATROPIUM-ALBUTEROL 3 ML NEB ONE (19:56)
[2024-05-04] MEDS ORDERED: GABAPENTIN 400 MG CAP ONE (20:55)
[2024-05-04] MEDS ORDERED: PRAMIPEXOLE 0.25 MG TAB ONE (20:55)
[2024-05-05] MEDS ORDERED: HEPARIN SODIUM,PORCINE 5,000 UNIT/ML 1 ML VIAL ONE (05:52)
[2024-05-05] MEDS ORDERED: BUDESONIDE 1 MG/2 ML NEBU INHALATION ONE (08:10)
[2024-05-05] MEDS ORDERED: FORMOTEROL FUMARATE 20 MCG/2 ML NEBU INHALATION ONE (08:10)
[2024-05-05] MEDS ORDERED: IPRATROPIUM-ALBUTEROL 3 ML NEB ONE (08:10)
[2024-05-05] MEDS ORDERED: PANTOPRAZOLE 40 MG TABLET PO ONE (08:58)
[2024-05-05] MEDS ORDERED: ASPIRIN 81 MG ONE (08:58)
[2024-05-05] MEDS ORDERED: HYDROcodone/APAP 10-325MG 1 EACH TAB ONE (08:58)
[2024-05-05] MEDS ORDERED: METOPROLOL TARTRATE 25 MG TAB ONE (08:58)
[2024-05-05] MEDS ORDERED: FUROSEMIDE 20 MG TAB ONE (08:59)
[2024-05-05] MEDS ORDERED: PRAMIPEXOLE 0.25 MG TAB ONE (08:59)
[2024-05-05] MEDS ORDERED: predniSONE 20 MG TAB ONE (08:59)
[2024-05-05] MEDS ORDERED: DULoxetine HCL 60 MG CAPSULE.DR PO ONE (08:59)
[2024-05-05] MEDS ORDERED: AZITHROMYCIN 500 MG TAB ONE (08:59)
[2024-05-05] MEDS ORDERED: cefTRIAXone 1 GM VIAL ONE (08:59)
[2024-05-06] MEDS ORDERED: IPRATROPIUM-ALBUTEROL 3 ML NEB INHALATION PRN
[2024-05-06] MEDS ORDERED: LORazepam 2 MG/ML INJ IV PRN
[2024-05-06] MEDS ORDERED: ASPIRIN-ACET-CAFF 250-250-65MG 1 EACH TAB PO PRN
[2024-05-06] MEDS ORDERED: ACETAMINOPHEN TAB 325 MG TAB PO PRN
[2024-05-06] MEDS ORDERED: MORPHINE SULFATE 4 MG/ML SYRINGE IVP PRN
[2024-05-06] MEDS ORDERED: HEPARIN SODIUM,PORCINE 5,000 UNIT/ML 1 ML VIAL SQ SCH
[2024-05-06] MEDS ORDERED: ONDANSETRON 4 MG/2 ML VIAL IVP PRN
[2024-05-06] MEDS ORDERED: PANTOPRAZOLE 40 MG TABLET PO SCH (07:30)
[2024-05-06] MEDS ORDERED: BUDESONIDE 1 MG/2 ML NEBU INHALATION SCH (08:00)
[2024-05-06] MEDS ORDERED: IPRATROPIUM-ALBUTEROL 3 ML NEB INHALATION SCH (08:00)
[2024-05-06] MEDS ORDERED: FORMOTEROL FUMARATE 20 MCG/2 ML NEBU INHALATION SCH (08:00)
[2024-05-06] MEDS ORDERED: HYDROcodone/APAP 10-325MG 1 EACH TAB PO SCH (09:00)
[2024-05-06] MEDS ORDERED: METOPROLOL TARTRATE 25 MG TAB PO SCH (09:00)
[2024-05-06] MEDS ORDERED: predniSONE 20 MG TAB PO SCH (09:00)
[2024-05-06] MEDS ORDERED: PRAMIPEXOLE 0.125 MG TAB PO SCH (09:00)
[2024-05-06] MEDS ORDERED: DULoxetine HCL 20 MG CAPSULE.DR PO SCH (09:00)
[2024-05-06] MEDS ORDERED: ASPIRIN 81 MG PO SCH (09:00)
[2024-05-06] MEDS ORDERED: AZITHROMYCIN 500 MG TAB PO SCH (09:00)
[2024-05-06] MEDS ORDERED: DULoxetine HCL 60 MG CAPSULE.DR PO SCH (09:00)
[2024-05-06] MEDS ORDERED: FUROSEMIDE 20 MG TAB PO SCH (09:00)
[2024-05-06] MEDS ORDERED: GABAPENTIN 400 MG CAP PO SCH (21:00)
--- NOTE | 2024-05-17 17:27 | XR ---
Patient: Ashkan Eden D Ordering Physician: Unknown, Unknown ID: [id number] Phone, Pager: Phon e: N/A Pager: N/A : 1945 Age/Gender: 78Y, M Primary Location: N/A Procedure: XR CHEST 1V Suresh dy Date: 05/03/2024 6:15:00 AM Patient: KareyAshkan D Ordering Physician: Unknown, Unknown ID: [id number] Phone, Pager: Phon e: N/A Pager: N/A : 1945 Age/Gender: 78Y, M Primary Location: N/A Procedure: XR CHEST 1V Suresh dy Date: 05/03/2024 6:15:00 AM EXAMINATION TYPE: XR chest 1V DATE OF EXAM: 05/03/2024 HISTORY: Shortness of breath. COMPARISON: None. TECHNIQUE: Single view of the chest is submitted. FINDINGS: Demonstrated are scattered senescent parenchymal change. Hemidiaphragm with increased basilar linear opacity may reflect parenchymal scarring or atelectasis. Developing infiltrates difficult to exclude. The heart is stable. Hilar and mediastinal structures are within normal limits. Degenerative changes are seen of the dorsal spine. IMPRESSION: 1. Hemidiaphragm with increased basilar linear opacity may reflect parenchymal scarring or atelectas is. Developing infiltrates difficult to exclude.
--- NOTE | 2024-05-21 08:53 | CT ---
EXAMINATION TYPE: CT brain you albrecht con DATE OF EXAM: 04/30/2024 COMPARISON: None HISTORY: 78-year-old male fever, shortness of breath, recent fall and pain CT DLP: 1371.8 mGycm Automated exposure control for dose reduction was used. Technique: Examination of the head was done in axial plane without intravenous contrast. Coronal and sagittal reconstructions performed. CT of the cervical spine was obtained in axial plane without intravenous injection of contrast mater ial. Coronal and sagittal reformatted images were obtained from the axial views for evaluation of f ractures, spinal alignment and canal. FINDINGS: Head: An area of 8mm extra-axial calcification superior and posterior left parasagittal parietal convexity. Otherwise, there is no evidence of acute intracranial hemorrhage, acute ischemic changes, mass, mass -effect, or extra-axial fluid collection. There is no effacement of cerebral sulci or basal subarach noid cisterns. There is no hydrocephalus. There is no midline shift. Chun-white matter distinction is preserved. Left nasal septal deviation. 1.7 cm mucosal retention cyst floor of the left maxillary sinus. Right t otal prosthesis. Mastoid air cells well pneumatized. No calvarial fracture. Cervical spine: No craniocervical junction abnormality, predental space widening, or prevertebral soft tissue swellin g. Degenerative change at the C1 dens articulation as well as along the lateral mass articulations. Variable degrees of interbody ankylosis across C2-C5 levels. Reversal of normal cervical lordosis. De generative grade 1 retrolisthesis C5-C6. Multilevel facet and uncovertebral joint arthropathy is present. Moderate to advanced degenerative di sc disease is present as well. Disc osteophyte complexes mid and lower cervical spine. Ossification t he posterior longitudinal ligament opposite C4 and C5. Changes result in moderate spinal canal stenoses at both C4-C5 and C5-C6 secondary to these changes. Mild C6-C7. No acute fracture is seen. Hypertrophic facet arthropathy in the visualized upper thoracic spine especially towards the right. Vertebral moderate neural foraminal stenoses throughout, moderate to severe on the right at C3-C4, on the left at C4-C5, both sides in C5-C6, and on the right at C6/C7. Sagittal and coronal reformatted images confirm above findings. COMBINED IMPRESSION: 1. 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 Otherwise, no acute intracranial abnormality seen. 2. No acute fracture of the cervical spine. 3. Moderate to advanced spondylotic change of the cervical spine. Degenerative interbody ankylosis C2 -C5 levels. Reversal of the normal cervical lordosis and degenerative grade 1 retrolisthesis at C5-C6 .
--- NOTE | 2024-05-26 13:30 | XR ---
EXAMINATION TYPE: XR chest 2V DATE OF EXAM: 05/26/2024 12:54 PM CLINICAL INDICATION: Male, 78 years old with history of FEVER, SOB; COMPARISON: Chest radiographs from 06/16/2020 TECHNIQUE: XR chest 2V Frontal view of the chest. FINDINGS: Lungs/Pleura: There is no evidence of pleural effusion, focal consolidation, or pneumothorax. Pulmonary vascularity: Unremarkable. Heart/mediastinum: Cardiomediastinal silhouette is unremarkable. Musculoskeletal: No acute osseous pathology. Shoulder arthroplasty appears intact. IMPRESSION: Cardiomegaly, pulmonary vascular congestion and bilateral pleural effusions. Correlate with BNP for c ongestive heart failure. Post infection not excluded. [facility], Workstation [id number], 05/26/2024 1:27 PM
== END 2024-05-05 11:58 | disposition home health service (06) | DRG 871 ==
LOC: 3SCARD 14:00
PROVIDERS: ADMIT Internal Medicine; ATTEND Internal Medicine
DX: A41.9 Sepsis, unspecified organism (principal); I21.A1 Myocardial infarction type 2; J96.21 Acute and chronic respiratory failure with hypoxia; J96.22 Acute and chronic respiratory failure with hypercapnia; J18.9 Pneumonia, unspecified organism; E87.3 Alkalosis; J44.0 Chronic obstructive pulmonary disease with (acute) lower respiratory infection; J44.1 Chronic obstructive pulmonary disease with (acute) exacerbation; J98.6 Disorders of diaphragm; Z99.81 Dependence on supplemental oxygen; G25.81 Restless legs syndrome; E87.5 Hyperkalemia; I25.10 Atherosclerotic heart disease of native coronary artery without angina pectoris; G89.4 Chronic pain syndrome; W18.30XA Fall on same level, unspecified, initial encounter; Y92.009 Unspecified place in unspecified non-institutional (private) residence as the place of occurrence of the external cause; Y93.E9 Activity, other interior property and clothing maintenance; Z96.652 Presence of left artificial knee joint; Z80.42 Family history of malignant neoplasm of prostate; Z11.52 Encounter for screening for COVID-19; Z90.79 Acquired absence of other genital organ(s); Z79.899 Other long term (current) drug therapy
CPT/HCPCS: 70450; 71045; 71046; 72125; 84145; 87040; 87449; 93005; 94640; 94760; 96374; 99291

== ENCOUNTER → 2024-06-04 | Outpatient (CLI) | payer MEDICARE | END | disposition home or self-care (01) | LOC: LABWHC1 14:10 | PROVIDERS: ATTEND Urology | DX: C61 Malignant neoplasm of prostate (principal) | CPT/HCPCS: 36415; 84153 ==

== ENCOUNTER → 2024-11-23 | Outpatient (CLI) | payer MEDICARE ==
[2024-11-23 10:46] LABS: Basophils # (A) 0.04 X 10*3/uL (0.00-0.10); Basophils % (A) 0.5 %; Eosinophils # (A) 0.71 X 10*3/uL (0.04-0.35); Eosinophils % (A) 9.5 %; HGB 14.6 g/dL (13.0-17.0); Lymphocytes % (A) 18.8 %; MCH 28.5 pg (27.0-32.0); MCHC 31.1 g/dL (32.0-37.0); MCV 91.8 FL (80.0-97.0); Mean Platelet Volume 9.7 FL (9.5-12.2); Monocytes # (A) 0.77 X 10*3/uL (0.20-1.00); Monocytes % (A) 10.3 %; NRBC Per 100 WBC 0 X 10*3/uL (0.00-0.01); Neutrophils # (A) 4.47 X 10*3/uL (1.80-7.70); Neutrophils % (A) 60.2 %; Platelet Count 519 X 10*3/uL (140-440); RBC 5.12 X 10*6/uL (4.40-5.60); RDW 14.6 % (11.5-14.5); WBC 7.44 X 10*3/uL (4.50-10.00)
[2024-11-23 11:22] LABS: ALT 29 U/L (10-49); AST 32 U/L (14-35); Albumin/Globulin Ratio 1.67 Ratio (1.60-3.17); Alkaline Phosphatase 87 U/L (41-126); Blood Urea Nitrogen 19.6 mg/dL (9.0-27.0); Calcium 9.6 mg/dL (8.7-10.3); Carbon Dioxide 25.6 mmol/L (21.6-31.8); Chloride 103 mmol/L (96-109); Chol/HDL Ratio 2.76 Ratio; Globulin 2.4 g/dL (1.6-3.3); Glucose 100 mg/dL (70-110); Iron 48 UG/DL (65-175); LDL Cholesterol,Calculated 65.7 mg/dL (0.0-131.0); Potassium 5.2 mmol/L (3.5-5.5); Sodium 139 mmol/L (135-145); Total Bilirubin 0.3 mg/dL (0.3-1.2); Total Iron Binding Capacity 353 UG/DL (228-460); Total Protein 6.4 g/dL (6.2-8.2)
[2024-11-23 11:23] LABS: Ferritin 45.3 ng/mL (22.0-322.0)
== END | disposition home or self-care (01) ==
LOC: LABWHC1 07:09
PROVIDERS: ATTEND Internal Medicine
DX: J44.9 Chronic obstructive pulmonary disease, unspecified (principal); D50.9 Iron deficiency anemia, unspecified; E83.52 Hypercalcemia
CPT/HCPCS: 36415; 80053; 80061; 82607; 82728; 82746; 83540; 83550; 84443; 85025

== ENCOUNTER → 2025-01-18 | Outpatient (CLI) | payer MEDICARE ==
--- NOTE | 2025-01-18 17:25 | XR ---
EXAMINATION TYPE: XR foot complete LT DATE OF EXAM: 01/18/2025 5:07 PM COMPARISON: None available. CLINICAL INDICATION: Male, 79 years old with history of L03.119 CELLULITIS OF UNSPECIFIED PART OF LI L08.9; PHH, pain TECHNIQUE: XR foot complete LT examined in the AP, oblique, and lateral projections. FINDINGS: Previous osteotomy of the fifth digit metatarsal with surgical staple present. Osseous structures swetha ear demineralized. Diffuse tarsometatarsal degenerative arthritic changes. No acute fracture or dislo cation. No focal osseous erosion or aggressive periosteal reaction. IMPRESSION: Diffuse subcutaneous edema without radiographic evidence of acute osteomyelitis. [facility], , 01/18/2025 5:23 PM
== END | disposition home or self-care (01) ==
LOC: RADXRMAIN 16:48
PROVIDERS: ATTEND Internal Medicine
DX: L08.9 Local infection of the skin and subcutaneous tissue, unspecified (principal); L03.116 Cellulitis of left lower limb; R60.0 Localized edema

== ENCOUNTER → 2025-01-19 | Outpatient (CLI) | payer MEDICARE | END | disposition home or self-care (01) | LOC: LABWHC1 10:24 | PROVIDERS: ATTEND Family Medicine | DX: L08.9 Local infection of the skin and subcutaneous tissue, unspecified (principal) | CPT/HCPCS: 36415; 84550 ==